=== PATIENT | female | born 1970 | race Caucasian/White ===

== ENCOUNTER 2016-09-15 14:22 | Emergency (ER) | payer OTHER ==
[2016-09-15 14:36] VITALS: BP 145/95; PULSE 88; RESP 18; TEMP 98; O2SAT 95
--- NOTE | 2016-09-15 14:36 | UCPHY ---
[id number] pm - may have gotten wood flack into eye. HPI/ROS: CHIEF COMPLAINT: Left eye redness HISTORY OF PRESENT ILLNESS: This is a 46-year-old female who presents with left eye redness that developed a few hours ago. 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 This work involved construction dust. She does not have a foreign body sensation in the left eye. She denies direct trauma to the eye. She notices that it is red and has had some drainage. No change in her vision. She has been ill with an upper respiratory infection for the past 2 days with rhinorrhea and some cough. She has not had chest pain or shortness of breath. She has had sore throat for the past 5 days. No fever. She has been using Mucinex. She has had a flu vaccine. REVIEW OF SYSTEMS: A ten point review of systems was performed and is negative with the exception of the items mentioned in the HPI. Source: Patient Exam Limitations: No limitations - Personal History LMP (Females 10-55): 15-21 Days Ago Current Tetanus Diphtheria and Acellular Pertussis (TDAP): Yes - Medical/Surgical History Hx Asthma: No Hx Chronic Respiratory Disease: No Hx Diabetes: No Hx Cardiac Disease: No Hx Renal Disease: No Hx Cirrhosis: No Hx Alcoholism: No Hx HIV/AIDS: No Hx Splenectomy or Spleen Trauma: No Other PMH: Hashimotos. thyroid. Tonsillectomy adnoidectomy - Family History Significant Family History: No pertinent family hx - Social History Smoking Status: Former smoker Additional Social History: She works for [employer]. - Physical Exam Exam: General Appearance: Alert. Vital signs reviewed. Eyes: Mild OS conjunctival injection, watery OS discharge. Anicteric. No proptosis. No periorbital edema. JEROME. EOMI. No pain with eye movement. Slit-lamp examination performed and anterior chambers are normal. Fluorescein staining negative for corneal abrasion on the left. Left eyelids everted and no foreign body identified. ENT, Mouth: Mucous membranes are moist, no oropharyngeal erythema or edema. Neck: No lymphadenopathy, supple. Respiratory: Lungs are clear to auscultation; no wheezes, rales, or rhonchi. Cardiovascular: Regular rate and rhythm. Skin: Warm and dry, no rashes on exposed skin, normal color. Neurological: Alert and oriented. Moving all four extremities easily and equally. Facial sensation intact. Psychiatric: Normal affect. Constitutional: Initial Vital Signs Temperature (C) 36.6 C 09/15/16 14:33 Heart Rate 88 09/15/16 14:33 Respiratory Rate 18 09/15/16 14:33 Blood Pressure 145/95 H 09/15/16 14:33 O2 Sat (%) 95 09/15/16 14:33 O2 Delivery Mode Room Air Allergies/Adverse Reactions: No Known Allergies Allergy (Verified 10/28/14 10:43) Home Medications: Medication Instructions Recorded Synthroid 10/28/14 Sulfacetamide 10% [Bleph-10 10% 1 drops OST Q4H #1 opht.btl 09/15/16 (RX)] Medical Decision Making ED Course/Re-evaluation: It seems that she has developed a left conjunctivitis. She will be started on antibiotic drops. It seems coincidental that she was working around construction dust. I do not find a foreign body or a corneal abrasion on exam. She does not have a foreign body sensation. I see no evidence of eye trauma. I do not think that this is keratitis. I do not suspect acute angle closure glaucoma. Departure - Departure Disposition: Home, Routine, Self-Care Clinical Impression: Conjunctivitis, Upper respiratory infection Condition: Good Instructions: Conjunctivitis (ED), Upper Respiratory Infection (ED) Additional Instructions: Continue with the [id number] medications that you are using for sore throat and sinus pain. I also recommended see throat coat T. Add some honey.Adult Pain & Fever Control: We recommend Acetaminophen (Tylenol) and Ibuprofen (Motrin,Advil) for pain and fever control. When fever is high or pain severe, both drugs can be used at the same time, but at different intervals. Please note the time differences. Your dose is: Acetaminophen 650mg every 4 to 6 hours Ibuprofen 400mg every 8 hours with food OR Note: do not take Acetaminophen with Hydrocodone (Vicodin, Lortab) or Oycodone (Percocet). These medications also contain Acetaminophen. No more than 3000mg of Acetaminophen should be taken in 24 hours (for an adult). If you develop severe eye pain, change in vision, sensation of foreign body in her eye--please be re-evaluated immediately. Referrals: Graham Seaman MD [Medical Doctor] - As per Instructions Prescriptions: Sulfacetamide 10% [Bleph-10 10% (RX)] 1 drops OST Q4H #1 opht.btl - PQRS PQRS Measurement: Does not apply.
== END 2016-09-15 15:15 | disposition home or self-care (01) ==
LOC: CED 14:22
DX: H10.9 Unspecified conjunctivitis (principal); J06.9 Acute upper respiratory infection, unspecified; E06.3 Autoimmune thyroiditis; Z87.891 Personal history of nicotine dependence
CPT/HCPCS: G0463-PO

== ENCOUNTER 2017-02-12 07:05 | Emergency (ER) | payer OTHER | END 2017-02-12 07:10 | disposition left against medical advice (07) | LOC: CED 07:05 | DX: Z53.21 Procedure and treatment not carried out due to patient leaving prior to being seen by health care provider (principal) ==

== ENCOUNTER → 2017-02-21 | Outpatient (CLI) | payer OTHER | LOC: CIMAGING 08:22 | PROVIDERS: ATTEND Internal Medicine | DX: S93.402A Sprain of unspecified ligament of left ankle, initial encounter (principal); S90.02XD Contusion of left ankle, subsequent encounter | CPT/HCPCS: 73590-PO; 73610-PO; 73630-PO ==